=== PATIENT | male | born 1975 | race Caucasian/White ===

== ENCOUNTER 2018-11-10 12:21 | Observation (INO) ==
[2018-11-10] MEDS ORDERED: 0.9 % Sodium Chloride 1,000 ML IVC ONE (12:42)
[2018-11-10] MEDS ORDERED: *HR* HYDROmorphone (PF) 1 MG/ML SYRINGE IVP ONE (12:44)
[2018-11-10] MEDS ORDERED: Ondansetron 4 MG/2 ML VIAL IVP ONE ×2 (12:44→18:57)
--- NOTE | 2018-11-10 12:46 | Emergency Department Note ---
Disposition Clinical Impression: Abdominal pain, Vomiting, Gallbladder disease, Gallbladder sludge, Thrombocytopenia, Hepatomegaly Disposition: Admitted As Inpatient Referrals: NONE,PCP [Primary Care Provider] - Forms: ED Satisfaction Letter, Work/School Release Time of Disposition: 18:10 Abdominal Pain HPI - General Chief Complaint: ED Abdominal Pain Stated Complaint: vomiting,fever Time Seen by Provider: 11/10/18 12:42 Source: patient - History of Present Illness HPI Narrative: 43-year-old male reports the emergency department complaining of right upper abdominal pain and recurrent nonbloody vomitus. There is no history of anticoagulant therapy. No diarrhea or bloody stool. There is no history of trauma. He has no history of aneurysm, he is not anticoagulated. No syncope. The patient has had no shortness of breath coughing of blood or chest pain. There is no history of urinary symptomatology. No flank or back pain. The patient was recently evaluated in emergency department and reports he has gallbladder sludge. There is no history of diabetes. No major medical problems or prior abdominal surgery per his history. The patient's female ultrasound technol reports he may have had a fever. There is no history of jaundice or icterus. Pain Scale: 7 - Related Data Previous Rx's Medication Instructions Recorded OxyCODONE/APAP 5/325 [Percocet 1 each PO Q6HR PRN #12 tablet 07/17/16 5/325 MG] Tamsulosin [Flomax] 0.4 mg PO DAILY #12 cap.er.24h 07/17/16 Ondansetron ODT [Zofran ODT] 4 mg SL Q6HR PRN #10 tab.rapdis 01/17/17 Ondansetron ODT [Zofran ODT] 4 mg SL Q6HR #12 tab.rapdis 11/09/18 Allergies Allergy/AdvReac Type Severity Reaction Status Date / Time No Known Allergies Allergy Verified 01/17/17 18:55 All systems ED: reviewed and negative except as stated. Abdominal Pain PMH - Past Medical History Medical history: Reports: asthma, kidney stones Male Surgical History: Reports: no surgical history Psychiatric history: Reports: no psych history - Social History Smoking status: Current every day smoker Alcohol use: Reports: none Drug use: Reports: none Physical Exam - General Limitations: no limitations General appearance: alert, in no apparent distress - Head Head exam: atraumatic, normocephalic, normal inspection - Eye Eye exam: Present: normal appearance, PERRL, EOMI - ENT ENT exam: normal exam, normal oropharynx, mucous membranes moist, TM's normal bilaterally, normal external ear exam - Neck Neck exam: Present: normal inspection, full ROM, trachea midline - Chest Chest inspection: Present: symmetric chest wall rise. Absent: tenderness - Respiratory Respiratory exam: Present: normal lung sounds bilaterally. Absent: respiratory distress, prolonged expiratory phase - Cardiovascular Cardiovascular exam: Present: regular rate, normal rhythm, normal heart sounds - Abdominal Exam Abdominal exam: Present: soft, tenderness, normal bowel sounds. Absent: distention, guarding, rebound, rigidity Abdominal tenderness: Present: RUQ, mild - Extremities Exam Extremities exam: Present: normal inspection, full ROM, normal capillary refill. Absent: tenderness, pedal edema, joint swelling, calf tenderness - Expanded Lower Extremity Exam Neurovascular/Tendon exam: Present: normal capillary refill. Absent: motor deficit, sensory deficit, tendon deficit, extremity cold to touch, pallor - Back Exam Back exam: Present: normal inspection, full ROM. Absent: tenderness, CVA tenderness (R), CVA tenderness (L), vertebral tenderness - Neurological Exam Neurological exam: Present: alert, oriented X3, CN II-XII intact. Absent: motor sensory deficit - Psychiatric Psychiatric exam: Present: normal affect, normal mood - Skin Skin exam: Present: warm, dry, intact, normal color Course Vital Signs Temperature 98.8 F 11/10/18 12:37 Pulse Rate 87 11/10/18 12:37 Respiratory Rate 18 11/10/18 12:37 Blood Pressure 184/111 11/10/18 12:37 O2 Sat by Pulse Oximetry 98 11/10/18 12:37 Temperature 98.9 F 11/10/18 12:57 Pulse Rate 70 11/10/18 14:53 Respiratory Rate 12 11/10/18 14:53 Blood Pressure 133/95 11/10/18 14:53 O2 Sat by Pulse Oximetry 95 11/10/18 14:53 Oxygen Delivery Oxygen Delivery Room Air Abdominal Pain - MDM Narrative Medical decision making narrative: The patient was seen recently in the emergency department and had a CT scan which revealed some gallbladder sludge. He had persistent vomiting and right upper abdominal pain return to the emergency department for evaluation. Laboratory studies obtained as well as x-rays EKG and right upper quadrant sonogram. Ultrasound reveals gallstone with an element of wall thickening, equivocal for cholecystitis. Based on the patient's second visit to the emergency department with concerns regarding right upper abdominal pain, and abnormal CT scan and ultrasound with a history of recurrent vomiting, I consulted with the surgicalist on-call Dr. Gabby Solorzano. After review, cholecystectomy was considered and the patient preferred hospitalization versus outpatient management. The patient is currently stable. He has been made nothing by mouth and is pending admission to the surgical service. - Lab Data Lab results reviewed: Yes I reviewed the patient's lab results. Result diagrams: 11/10/18 12:52 11/10/18 12:52 Lab Results 11/10/18 11/10/18 11/10/18 Range/Units 12:52 12:52 12:52 WBC (4.3-11.1) K/mcL RBC (4.19-5.50) M/mcL Hgb (12.9-16.9) g/dL Hct (37.5-50.1) % MCV (83.0-100.0) fL MCH (28.0-33.3) pg MCHC (31.6-35.5) g/dL RDW (11.5-14.5) % Plt Count (140-400) K/mcL MPV (9.4-12.4) fL Immature Gran % (0-4) % Seg Neutrophils % % Lymphocytes % % Monocytes % % Eosinophils % % Basophils % % Neutrophils # (1.6-8.9) K/mcL Lymphocytes # (0.6-4.6) K/mcL Monocytes # (0.0-1.3) K/mcL Eosinophils # (0.0-0.6) K/mcL Basophils # (0.0-0.2) K/mcL Immature Plt Fraction (1.1-6.1) % PT 10.8 (9.4-12.1) Seconds INR 1.0 APTT 36.3 H (26.0-36.0) Seconds Sodium (136-145) mEq/L Potassium (3.5-5.1) mEq/L Chloride (98-107) mEq/L Carbon Dioxide (23-29) mEq/L BUN (6-20) mg/dL Creatinine (0.70-1.30) mg/dL Est GFR ( Amer) (> 60) Est GFR (Non-Af Amer) (> 60) BUN/Creatinine Ratio (6-26) Glucose (70-105) mg/dL Calculated Osmolality (280-300) Lactic Acid 1.2 (0.5-2.2) mmol/L Calcium (8.6-10.3) mg/dL Total Bilirubin (0.3-1.0) mg/dL Direct Bilirubin (0.0-0.2) mg/dL Indirect Bilirubin (0.0-1.2) mg/dL AST (13-39) Units/L ALT (7-52) Units/L Alkaline Phosphatase (34-104) Units/L Troponin I < 0.03 (< 0.04) ng/mL C-Reactive Protein (Less than 10) mg/L Serum Total Protein (6.4-8.9) g/dL Albumin (3.5-5.7) g/dL Globulin (2.4-3.5) g/dL Albumin/Globulin Ratio (1.1-2.2) Lipase (11-82) Units/L Urine Color (Yellow) Urine Clarity (Clear) Urine pH (5.0-8.0) pH Units Ur Specific Leon (1.010-1.025) Urine Protein (Neg-Trace) mg/dL Urine Glucose (UA) (Normal) mg/dL Urine Ketones (Negative) mg/dL Urine Blood (Negative) Urine Nitrite (Negative) Urine Bilirubin (Negative) Urine Urobilinogen (Normal) mg/dL Ur Leukocyte Esterase (Negative) Urine Microscopic RBC (0-3) per hpf Urine Microscopic WBC (0-3) per hpf Ur Squamous Epith Cells (None-Few) per lpf Urine Bacteria (None-Few) per hpf Hyaline Casts (None-Few) per lpf Ur Culture Indicated? (NO) 11/10/18 11/10/18 11/10/18 Range/Units 12:52 12:52 13:28 WBC 9.6 (4.3-11.1) K/mcL RBC 5.49 (4.19-5.50) M/mcL Hgb 16.4 D (12.9-16.9) g/dL Hct 48.5 (37.5-50.1) % MCV 88.3 (83.0-100.0) fL MCH 29.9 (28.0-33.3) pg MCHC 33.8 (31.6-35.5) g/dL RDW 12.1 (11.5-14.5) % Plt Count 85 L (140-400) K/mcL MPV 12.5 H (9.4-12.4) fL Immature Gran % 0.2 (0-4) % Seg Neutrophils % 70.9 % Lymphocytes % 22.9 % Monocytes % 5.0 % Eosinophils % 0.7 % Basophils % 0.3 % Neutrophils # 6.8 (1.6-8.9) K/mcL Lymphocytes # 2.2 (0.6-4.6) K/mcL Monocytes # 0.5 (0.0-1.3) K/mcL Eosinophils # 0.1 (0.0-0.6) K/mcL Basophils # 0.0 (0.0-0.2) K/mcL Immature Plt Fraction 13.3 H (1.1-6.1) % PT (9.4-12.1) Seconds INR APTT (26.0-36.0) Seconds Sodium 141 (136-145) mEq/L Potassium 3.6 (3.5-5.1) mEq/L Chloride 108 H (98-107) mEq/L Carbon Dioxide 23 (23-29) mEq/L BUN 13 (6-20) mg/dL Creatinine 1.02 (0.70-1.30) mg/dL Est GFR ( Amer) > 60 (> 60) Est GFR (Non-Af Amer) > 60 (> 60) BUN/Creatinine Ratio 13 (6-26) Glucose 171 H (70-105) mg/dL Calculated Osmolality 296 (280-300) Lactic Acid (0.5-2.2) mmol/L Calcium 9.2 (8.6-10.3) mg/dL Total Bilirubin 0.3 (0.3-1.0) mg/dL Direct Bilirubin 0.0 (0.0-0.2) mg/dL Indirect Bilirubin 0.3 (0.0-1.2) mg/dL AST 18 (13-39) Units/L ALT 33 (7-52) Units/L Alkaline Phosphatase 87 (34-104) Units/L Troponin I (< 0.04) ng/mL C-Reactive Protein 6 (Less than 10) mg/L Serum Total Protein 6.5 (6.4-8.9) g/dL Albumin 4.4 (3.5-5.7) g/dL Globulin 2.1 L (2.4-3.5) g/dL Albumin/Globulin Ratio 2.1 (1.1-2.2) Lipase 14 (11-82) Units/L Urine Color Yellow (Yellow) Urine Clarity Clear (Clear) Urine pH 6.5 (5.0-8.0) pH Units Ur Specific Leon 1.026 H (1.010-1.025) Urine Protein 30 H (Neg-Trace) mg/dL Urine Glucose (UA) Normal (Normal) mg/dL Urine Ketones Negative (Negative) mg/dL Urine Blood Negative (Negative) Urine Nitrite Negative (Negative) Urine Bilirubin Negative (Negative) Urine Urobilinogen Normal (Normal) mg/dL Ur Leukocyte Esterase Negative (Negative) Urine Microscopic RBC 0-3 (0-3) per hpf Urine Microscopic WBC 0-3 (0-3) per hpf Ur Squamous Epith Cells Many H (None-Few) per lpf Urine Bacteria None Seen (None-Few) per hpf Hyaline Casts None Seen (None-Few) per lpf Ur Culture Indicated? NO (NO) - Radiology Data Radiology results reviewed: Yes I reviewed the patient's radiology results.
[2018-11-10 13:04] LABS: Immature Granulocytes % 0.2 % (0-4); Mean Corpuscular Hemoglobin 29.9 pg (28.0-33.3)
[2018-11-10 13:06] LABS: Basophils % 0.3 %; Eosinophils # 0.1 K/mcL (0.0-0.6); Eosinophils % 0.7 %; Hematocrit 48.5 % (37.5-50.1); Hemoglobin 16.4 g/dL (12.9-16.9); Immature Platelets 13.3 % (1.1-6.1); Lymphocytes # 2.2 K/mcL (0.6-4.6); Lymphocytes % 22.9 %; Mean Corpuscular HGB Conc 33.8 g/dL (31.6-35.5); Mean Corpuscular Volume 88.3 fL (83.0-100.0); Mean Platelet Volume 12.5 fL (9.4-12.4); Monocytes # 0.5 K/mcL (0.0-1.3); Neutrophils # 6.8 K/mcL (1.6-8.9); Red Blood Count 5.49 M/mcL (4.19-5.50); Red Cell Distribution Width 12.1 % (11.5-14.5); Segmented Neutrophils % 70.9 %; White Blood Count 9.6 K/mcL (4.3-11.1)
[2018-11-10 13:17] LABS: Prothrombin Time 10.8 Seconds (9.4-12.1)
[2018-11-10 13:20] LABS: Activated Partial Thrombo Time 36.3 Seconds (26.0-36.0)
[2018-11-10 13:22] LABS: Platelet Count 85 K/mcL (140-400)
[2018-11-10 13:39] LABS: Bilirubin,Urine Negative (Negative); Blood,Urine Negative (Negative); Clarity,Urine Clear (Clear); Color,Urine Yellow (Yellow); Glucose,Urine (UA) Normal (Normal); Ketones,Urine Negative (Negative); Leukocyte Esterase,Urine Negative (Negative); Nitrite,Urine Negative (Negative); PH,Urine 6.5 pH Units (5.0-8.0); Protein,Urine 30 mg/dL (Neg-Trace); Specific Gravity,Urine 1.026 (1.010-1.025); Urobilinogen,Urine Normal (Normal)
[2018-11-10 13:40] LABS: Bacteria,Urine None Seen per hpf (None-Few); Hyaline Casts,Urine None Seen per lpf (None-Few); RBC,Urine 0-3 per hpf (0-3); Squamous Epithelial Cell,Urine Many per lpf (None-Few); WBC,Urine 0-3 per hpf (0-3)
[2018-11-10 14:40] LABS: Alanine Aminotransferase 33 Units/L (7-52); Albumin 4.4 g/dL (3.5-5.7); Albumin/Globulin Ratio 2.1 (1.1-2.2); Alkaline Phosphatase 87 Units/L (34-104); Aspartate Amino Transferase 18 Units/L (13-39); BUN/Creatinine Ratio 13 (6-26); Bilirubin,Indirect 0.3 mg/dL (0.0-1.2); Bilirubin,Total 0.3 mg/dL (0.3-1.0); Blood Urea Nitrogen 13 mg/dL (6-20); C-Reactive Protein 6 mg/L (Less than 10); Calcium 9.2 mg/dL (8.6-10.3); Carbon Dioxide 23 mEq/L (23-29); Chloride 108 mEq/L (98-107); Globulin 2.1 g/dL (2.4-3.5); Glucose 171 mg/dL (70-105); Lipase 14 Units/L (11-82); Osmolality,Calculated 296 (280-300); Potassium 3.6 mEq/L (3.5-5.1); Sodium 141 mEq/L (136-145); Total Protein 6.5 g/dL (6.4-8.9); eGFR For African Americans > 60 (> 60); eGFR For Non-African Americans > 60 (> 60)
[2018-11-10] MEDS ORDERED: CeFAZolin Syr 2,000MG/20 ML 2,000 MG/20 ML SYRINGE IVPB ONE (18:13)
--- NOTE | 2018-11-10 18:15 | Acute Care Surgery H&P ---
Date of Encounter: 11/10/18 Time of Encounter: 18:10 Assessment and Plan (1) Acute cholecystitis due to biliary calculus Current Visit: Yes Status: Acute The assessment and plan as outlined above was discussed with the patient and/or family members who expressed understanding and agreement. All questions were answered. Pt diagnosis of symptomatic cholelithiasis with cholecystitis is discussed. Laparoscopic Cholecystectomy is recommended. Procedure for the surgery, risks and benefits are discussed in detail. Possible known complications for Laparoscopic Cholecystectomy are bleeding, infection, bile duct injury, bile leak, small intestine or stomach injury, stroke, DVT/PE, ID or . Pt understands these risks, which in this case are low. Pt wishes to proceed with surgery as soon as possible. Informed consent is obtained. Pt condition is stable. Surgery is scheduled. History of Present Illness Chief complaint: RUQ abdominal pain HPI: This 43 y/o male pt presents to [facility] ED for the second day in a row c/o severe RUQ abdominal pain. Pt reports pain is severe and unrelenting. Pt c/o epigastric pain as well. Pt reports pain radiates into back. Pt reports intractable nausea and vomiting. Pt denies changes in BM. Pt denies CP or SOB. Pt denies fever. Past Med Surg Social Fam HX - Past Medical History Medical history: asthma, kidney stones Psychiatric history: no psych history - Past Surgical History Surgical History: no surgical history - Social History Smoking Status: Current every day smoker Smokeless Tobacco Status: No Alcohol use: none Drug use: none Medications and Allergies Allergy/AdvReac Type Severity Reaction Status Date / Time No Known Allergies Allergy Verified 01/17/17 18:55 Review of Systems All systems PM: The remainder of the systems were reviewed and are negative - Constitutional as per HPI, anorexia, no chills, no fatigue, no fever(s), no night sweats, no weakness, no weight loss - EENT Nose, mouth and throat: dry mouth, no dizziness, no nasal congestion, no nasal discharge, no sinus pain, no sinus pressure, no sore throat - Cardiovascular no chest pain, no diaphoresis, no dyspnea, no edema - Respiratory no cough, no dyspnea, no wheezing - Gastrointestinal abdominal pain, belching, bloating, nausea, vomiting, no constipation, no diarrhea, no heartburn - Genitourinary no dysuria, no flank pain, no urinary frequency - Musculoskeletal no back pain, no joint swelling, no limited range of motion, no neck pain - Integumentary no dry skin, no pruritus, no rash, no wounds, no jaundice - Neurological no confusion, no dizziness, no focal weakness, no weakness - Psychiatric no anxiety, no depression - Endocrine no fatigue - Hematologic/Lymphatic no easy bleeding, no easy bruising General Surgery Exam Initial Vital Signs Temp Pulse Resp BP Pulse Ox 98.8 F 87 18 184/111 98 11/10/18 12:37 11/10/18 12:37 11/10/18 12:37 11/10/18 12:37 11/10/18 12:37 - General physical appearance well nourished, no distress, moderate pain. negative: jaundice - Eyes PERRL, normal ocular movement. negative: icteric - ENT no congestion, dry mucosa. negative: nasal discharge - Neck no masses, trachea midline, no lymphadectomy, no venous distension - Respiratory normal respiratory effort, clear to auscultation - Cardiovascular Cardiovascular exam: Present: RRR. Absent: JVD - Abdomen Abdomen general surgery: Present: bowel sounds present, soft, distended, tender Abdominal Tenderness: Present: RUQ - Genitourinary Present: normal penis with no external lesions - Integumentary Integumentary general surgery: Present: warm and dry - Neurologic Present: CN 2-12 grossly intact, normal coordination - Musculoskeletal Present: normal gait, normal posture - Psychiatric Psychiatric general surgery: Present: A&Ox3, appropriate Results - Labs 11/10/18 12:52 11/10/18 12:52 Abnormal lab results Plt Count 85 K/mcL (140-400) L 11/10/18 12:52 MPV 12.5 fL (9.4-12.4) H 11/10/18 12:52 Immature Plt Fraction 13.3 % (1.1-6.1) H 11/10/18 12:52 APTT 36.3 Seconds (26.0-36.0) H 11/10/18 12:52 Chloride 108 mEq/L (98-107) H 11/10/18 12:52 Glucose 171 mg/dL (70-105) H 11/10/18 12:52 Globulin 2.1 g/dL (2.4-3.5) L 11/10/18 12:52 Ur Specific Currie 1.026 (1.010-1.025) H 11/10/18 13:28 Urine Protein 30 mg/dL (Neg-Trace) H 11/10/18 13:28 Ur Squamous Epith Cells Many per lpf (None-Few) H 11/10/18 13:28 Diabetes panel 11/10/18 Range/Units 12:52 Sodium 141 (136-145) mEq/L Potassium 3.6 (3.5-5.1) mEq/L Chloride 108 H (98-107) mEq/L Carbon Dioxide 23 (23-29) mEq/L BUN 13 (6-20) mg/dL Creatinine 1.02 (0.70-1.30) mg/dL Glucose 171 H (70-105) mg/dL Calcium 9.2 (8.6-10.3) mg/dL AST 18 (13-39) Units/L ALT 33 (7-52) Units/L Alkaline Phosphatase 87 (34-104) Units/L Albumin 4.4 (3.5-5.7) g/dL Calcium panel 11/10/18 Range/Units 12:52 Calcium 9.2 (8.6-10.3) mg/dL Albumin 4.4 (3.5-5.7) g/dL Pituitary panel 11/10/18 Range/Units 12:52 Sodium 141 (136-145) mEq/L Potassium 3.6 (3.5-5.1) mEq/L Chloride 108 H (98-107) mEq/L Carbon Dioxide 23 (23-29) mEq/L BUN 13 (6-20) mg/dL Creatinine 1.02 (0.70-1.30) mg/dL Glucose 171 H (70-105) mg/dL Calcium 9.2 (8.6-10.3) mg/dL Adrenal panel 11/10/18 Range/Units 12:52 Sodium 141 (136-145) mEq/L Potassium 3.6 (3.5-5.1) mEq/L Chloride 108 H (98-107) mEq/L Carbon Dioxide 23 (23-29) mEq/L BUN 13 (6-20) mg/dL Creatinine 1.02 (0.70-1.30) mg/dL Glucose 171 H (70-105) mg/dL Calcium 9.2 (8.6-10.3) mg/dL Total Bilirubin 0.3 (0.3-1.0) mg/dL AST 18 (13-39) Units/L ALT 33 (7-52) Units/L Alkaline Phosphatase 87 (34-104) Units/L Albumin 4.4 (3.5-5.7) g/dL All other labs normal. - Imaging US - abdomen: image reviewed (Cholelithiasis and mild gallbladder wall thickening) - VTE Reasons for not Prescribing Prophylaxis: Treatment not Indicated - Low risk for VTE
[2018-11-10] MEDS ORDERED: Lidocaine -MPF 4% 5 ML AMPUL ONE (18:32)
[2018-11-10] MEDS ORDERED: *HR* Midazolam HCl 2 MG/2 ML VIAL ONE (18:34)
[2018-11-10] MEDS ORDERED: Dexamethasone 4 MG/ML VIAL ONE (18:34)
[2018-11-10] MEDS ORDERED: *HR* Succinylcholine 200 MG/10 ML VIAL IVP ONE (18:34)
[2018-11-10] MEDS ORDERED: Lidocaine -MPF 2% 2 ML VIAL ONE (18:34)
[2018-11-10] MEDS ORDERED: Ondansetron 4 MG/2 ML VIAL ONE (18:34)
[2018-11-10] MEDS ORDERED: *HR* Propofol 200 MG/20 ML VIAL IVP ONE (18:34)
[2018-11-10] MEDS ORDERED: *HR* Rocuronium Bromide 50 MG/5 ML VIAL ONE (18:34)
[2018-11-10] MEDS ORDERED: Albuterol 2.5 MG/3 ML NEBULIZER IH ONE (18:36)
[2018-11-10] MEDS ORDERED: *HR* FentaNYL (PF) 100 MCG/2 ML VIAL ONE (18:38)
[2018-11-10] MEDS ORDERED: Albuterol 2.5 MG/3 ML NEBULIZER ONE (18:45)
--- NOTE | 2018-11-10 18:46 | Anesthesia Evaluation PreOp ---
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 Significant HX Other Medical History: Renal (stones) Anesthesia History: Past Anesthesia (none, no known family hx of anes complications) Alcohol Use: none Drug use: none Medications and Allergies Allergy/AdvReac Type Severity Reaction Status Date / Time No Known Allergies Allergy Verified 01/17/17 18:55 - Meds/Allergy Pre-op Review Medications Reviewed: Yes Allergies Reviewed: Yes Beta Blockers on Current Med List: No Anesthesia Results - Labs 11/10/18 12:52 11/10/18 12:52 Anesthesia Exam Vital Signs/O2 Sat, Most Current Temp Pulse Resp BP Pulse Ox 98.9 F 81 16 133/91 98 11/10/18 12:57 11/10/18 18:18 11/10/18 18:18 11/10/18 18:18 11/10/18 18:18 Weight: 106kg NPO (# of Hours): >8 - HEENT Pupil (Motor): Pupils equal, EOMI Mallampati: III Teeth: Edentulous Oral Opening: Greater than 3 - FEATHER CURLING MACHINE OPERATOR LOC: Oriented FEATHER CURLING MACHINE OPERATOR Motor: Normal RUE, Normal LUE, Normal RLE, Normal LLE, Normal Face FEATHER CURLING MACHINE OPERATOR Sensory: Normal: RUE, LUE, RLE, LLE, Face - Cardiac Rhythm: Regular - Pulmonary Breath Sounds: bilateral Clear Respiratory Effort: Symmetrical Anesthesia Assess/Plan ASA Score: 2 Level of consciousness: Cooperative Anesthetic Plan: General Monitoring Plan: Standard Monitors Recovery Plan: PACU
[2018-11-10] MEDS ORDERED: *HR* Promethazine 25 MG/ML VIAL IVP PRN (18:57)
[2018-11-10] MEDS ORDERED: *HR* Meperidine 25 MG/ML SYRINGE IVP PRN (18:57)
[2018-11-10] MEDS ORDERED: *HR* OxyCODONE Immed Rel 5 MG TABLET PO PRN ×2 (18:57→21:22)
[2018-11-10] MEDS ORDERED: *HR* HYDROmorphone (PF) 1 MG/ML SYRINGE IVP PRN (18:57)
[2018-11-10] MEDS ORDERED: Acetaminophen IV 1,000 MG/100 ML INFUS..BTL ONE (19:41)
[2018-11-10] MEDS ORDERED: Neostigmine Methylsulfate 3 MG/3 ML SYRINGE ONE (19:55)
--- NOTE | 2018-11-10 20:45 | Operative Note ---
Date of procedure: 11/10/18 Pre-op diagnosis: Acute cholecystitis with cholelithiasis Post-op diagnosis: same Procedure: Laparoscopic cholecystectomy Complications: None Anesthesia: GETA Surgeon: Thea Solorzano Was there an bankruptcy legal assistant present: Yes Administrative Job Titles: Elisha Rivers Estimated blood loss (cc): 25 Specimen: Gallbladder Condition: stable Disposition: PACU Procedure in Detail: This 43 year-old male was taken to the operating room and placed in the supine position. The anterior abdominal wall is prepped and draped in the usual sterile fashion. A 1-2 cm curvilinear incision is made in the infraumbilical area and subcutaneous tissue was dissected down to anterior rectus fascia. Fascia is grasped with a Reyes clamp, stay sutures were placed in the fascia is divided. Posterior rectus fascia and peritoneum were elevated and divided in the same manner. A Kendall port is inserted. Under direct visualization after the injection of 0.5% Marcaine the x3 5 mm ports are inserted in the right subcostal space under direct visualization. Exploration of the intraabdominal cavity reveals an abnormal gallbladder. The patient is placed in reverse Trendelenburg position and rotated to the left. The gallbladder is grasped and retracted in cephalad direction. It is also grasped and retracted in the lateral direction. The cystic duct was carefully identified circumferentially dissected doubly clipped and divided between clips. The cystic artery is carefully identified and circumferentially dissected and divided between clips. The gallbladder is dissected off the liver bed using electrocautery. Hemostasis was perfected using electrocautery. The gallbladder is removed from the intra-abdominal cavity using an Endo Catch bag. Copious irrigation is carried out in the intra- abdominal cavity, Wang's pouch and the gallbladder fossa. The pneumoperitoneum was allowed to escape under direct visualization. The ports were removed also under direct visualization. The fascia at the infraumbilical incision is closed using 0 Vicryl sutures. All skin incisions are closed using 4-0 Monocryl subcuticular stitches. Steri-Strips are placed. Sterile dressing is placed. Patient tolerated procedure well was taken to the PACU in good condition.
--- NOTE | 2018-11-10 21:18 | Anesthesia Evaluation Post Op ---
Date of Encounter: 11/10/18 Time of Encounter: 21:17 - Vital Signs Vital Signs: Vital Signs/O2 Sat, Most Current Temp Pulse Resp BP Pulse Ox 97.5 F L 71 12 156/87 95 11/10/18 20:57 11/10/18 20:57 11/10/18 20:57 11/10/18 20:57 11/10/18 20:57 - Lungs Lungs: Clear Ascult./Percussion - Airway Airway: Non-obstructed - Cardiovascular Regular Rate - Mental Status Mental Status: Alert & Oriented, Answers Appropriately - Pain Pain Scale: 0 Pain Scale used: Numeric (1 - 10) - Nausea Vomiting Nausea Vomiting: Not Present - Hydration Hydration: Ice chips - Discharge PostOp Status: Transfer Patient to floor
[2018-11-10] MEDS ORDERED: Ondansetron 4 MG/2 ML VIAL IVP PRN (21:22)
[2018-11-10] MEDS ORDERED: Nicotine 14 MG PATCH.TD24 TD SCH (23:00)
[2018-11-11] MEDS: ceFAZolin 1,000 MG in Water for inj. (sterile) 10 ML IVP SCH ×2 (00:23→07:47)
[2018-11-11 11:04] VITALS: BP 157/83
[2018-11-11] MEDS ORDERED: Ibuprofen 800 MG TABLET PO ONE (12:28)
[2018-11-11] MEDS ORDERED: *HR* OxyCODONE/APAP 5/325 TABLET PO PRN (12:28)
--- NOTE | 2018-11-11 12:32 | Discharge Summary ---
Orders not resulted at time of discharge: Pending orders 11/10/18 12:43 ECG 12 lead ECG [ECG] Stat 11/10/18 12:52 Culture,Blood [BC] Stat 11/10/18 20:17 Surgical Pathology [PTH] Routine Date of Encounter: 11/11/18 Time of Encounter: 12:33 - Discharge Diagnosis (1) Acute cholecystitis due to biliary calculus Priority: Primary Status: Resolved General Surgery Exam Initial Vital Signs Temp Pulse Resp BP Pulse Ox 98.8 F 87 18 184/111 98 11/10/18 12:37 11/10/18 12:37 11/10/18 12:37 11/10/18 12:37 11/10/18 12:37 Vital Signs Temp Pulse Resp BP Pulse Ox 11/11/18 11:01 98.3 F 89 18 157/83 93 11/11/18 08:03 98.2 F 92 18 161/97 92 11/11/18 04:08 97.8 F 90 16 154/98 94 11/11/18 00:24 98.1 F 88 12 137/86 94 11/10/18 23:15 98.4 F 91 12 167/97 95 11/10/18 22:15 98.5 F 91 12 150/90 95 11/10/18 21:45 98.0 F 71 12 157/94 95 11/10/18 21:15 97.8 F 76 12 173/60 11/10/18 20:57 97.5 F L 71 12 156/87 95 11/10/18 20:47 68 12 153/97 97 11/10/18 20:37 69 12 161/98 98 11/10/18 20:27 97.4 F L 77 20 140/100 99 11/10/18 18:18 81 16 133/91 98 11/10/18 14:53 70 12 133/95 95 11/10/18 12:57 98.9 F 89 16 190/111 98 11/10/18 12:37 98.8 F 87 18 184/111 98 Intake and Output 11/10/18 11/11/18 11/11/18 23:59 07:59 15:59 Intake Total Output Total 825 / 825 Balance -25 / 975 10 / -815 -825 / -815 Intake: IV Fluids 10 / 10 Ancef 1,000 MG In Water for inj . (sterile) 10 ML @ 200 mls/hr IVP Q8HR [facility] Rx#:[id number] Output: Urine 825 / 825 Estimated Blood Loss Other: Weight 97 kg Patient Weight 11/11/18 23:59 Weight 97 kg VITAL SIGNS: Reviewed. See [facility] GENERAL: In no apparent distress. HEENT: Normocephalic, atraumatic, pupils are equal and reactive, extraocular motions intact, oropharynx is pink and moist, there is no neck adenopathy or JVD noted. CHEST/RESPIRATORY: The thorax is free from signs of trauma. Lung sounds: clear to auscultation, normal respiratory effort CARDIAC: Regular rate and rhythm. Normal S1 and S2, without murmurs, gallops, or rubs. VASCULAR: No Edema. 2+ peripheral pulses. ABDOMEN: soft, expected postoperative tenderness, active bowel sounds INCISION: Surgical incision is clean, dry, and intact. There are no signs of cellulitis or infection noted. MUSCULOSKELETAL: Good range of motion of all major joints. Extremities without clubbing, cyanosis or edema. NEUROLOGIC EXAM: Alert and oriented x 3. Speech normal. Follows commands. PSYCHIATRIC: Mood normal. SKIN: No rash or lesions. - Hospital Course Hospital course: Mr. Peterson is a 43 year old male who presented on 11/10/2018 with right upper quadrant pain. He was found to have acute cholecystitis with cholelithiasis. He was taken to the operating room where he underwent an uncomplicated laparoscopic cholecystectomy. He is ambulating avoiding without difficulty, tolerating a diet without nausea or vomiting, vital signs are able, and he is afebrile. We will begin discharge planning to home with a follow-up in approximately 2 weeks. - Time Spent with Patient Total time spent providing and/or coordinating discharge services: - Discharge Medications Prescriptions: New Docusate Sodium [Colace] 100 mg PO BID PRN #30 capsule PRN Reason: Contstipation Ibuprofen 800 mg PO Q8H PRN #30 tablet PRN Reason: Postsurgical pain Polyethylene Glycol 3350 [MiraLAX Powder Bulk 17.9 Oz] 1 scoop PO DAILY 30 Days #510 gm OxyCODONE/APAP 5/325 [Percocet 5/325 MG] 1 each PO Q6HR PRN 7 Days #28 tablet PRN Reason: Pain Home Medications: Docusate Sodium [Colace] 100 mg PO BID PRN #30 capsule 11/11/18 [Rx] Ibuprofen 800 mg PO Q8H PRN #30 tablet 11/11/18 [Rx] OxyCODONE/APAP 5/325 [Percocet 5/325 MG] 1 each PO Q6HR PRN 7 Days #28 tablet 11/11/18 [Rx] Polyethylene Glycol 3350 [MiraLAX Powder Bulk 17.9 Oz] 1 scoop PO DAILY 30 Days #510 gm 11/11/18 [Rx] Allergies/Adverse Reactions: Allergy/AdvReac Type Severity Reaction Status Date / Time No Known Allergies Allergy Verified 01/17/17 18:55 Date of admission: 11/10/18 18:34 Primary care physician: PCP NONE Discharging clinician: Aimee Blankenship Anticipated date of discharge: 11/11/18 Labs on day of discharge: Labs from last 24 hours 11/10/18 11/10/18 11/10/18 13:28 12:52 12:52 WBC 9.6 RBC 5.49 Hgb 16.4 D Hct 48.5 MCV 88.3 MCH 29.9 MCHC 33.8 RDW 12.1 Plt Count 85 L MPV 12.5 H Immature Gran % 0.2 Seg Neutrophils % 70.9 Lymphocytes % 22.9 Monocytes % 5.0 Eosinophils % 0.7 Basophils % 0.3 Neutrophils # 6.8 Lymphocytes # 2.2 Monocytes # 0.5 Eosinophils # 0.1 Basophils # 0.0 Immature Plt Fraction 13.3 H PT INR APTT Sodium 141 Potassium 3.6 Chloride 108 H Carbon Dioxide 23 BUN 13 Creatinine 1.02 Est GFR ( Amer) > 60 Est GFR (Non-Af Amer) > 60 BUN/Creatinine Ratio 13 Glucose 171 H Calculated Osmolality 296 Lactic Acid Calcium 9.2 Total Bilirubin 0.3 Direct Bilirubin 0.0 Indirect Bilirubin 0.3 AST 18 ALT 33 Alkaline Phosphatase 87 Troponin I C-Reactive Protein 6 Serum Total Protein 6.5 Albumin 4.4 Globulin 2.1 L Albumin/Globulin Ratio 2.1 Lipase 14 Urine Color Yellow Urine Clarity Clear Urine pH 6.5 Ur Specific Alpine 1.026 H Urine Protein 30 H Urine Glucose (UA) Normal Urine Ketones Negative Urine Blood Negative Urine Nitrite Negative Urine Bilirubin Negative Urine Urobilinogen Normal Ur Leukocyte Esterase Negative Urine Microscopic RBC 0-3 Urine Microscopic WBC 0-3 Ur Squamous Epith Cells Many H Urine Bacteria None Seen Hyaline Casts None Seen Ur Culture Indicated? NO 11/10/18 11/10/18 11/10/18 12:52 12:52 12:52 WBC RBC Hgb Hct MCV MCH MCHC RDW Plt Count MPV Immature Gran % Seg Neutrophils % Lymphocytes % Monocytes % Eosinophils % Basophils % Neutrophils # Lymphocytes # Monocytes # Eosinophils # Basophils # Immature Plt Fraction PT 10.8 INR 1.0 APTT 36.3 H Sodium Potassium Chloride Carbon Dioxide BUN Creatinine Est GFR ( Amer) Est GFR (Non-Af Amer) BUN/Creatinine Ratio Glucose Calculated Osmolality Lactic Acid 1.2 Calcium Total Bilirubin Direct Bilirubin Indirect Bilirubin AST ALT Alkaline Phosphatase Troponin I < 0.03 C-Reactive Protein Serum Total Protein Albumin Globulin Albumin/Globulin Ratio Lipase Urine Color Urine Clarity Urine pH Ur Specific [place]pine Urine Protein Urine Glucose (UA) Urine Ketones Urine Blood Urine Nitrite Urine Bilirubin Urine Urobilinogen Ur Leukocyte Esterase Urine Microscopic RBC Urine Microscopic WBC Ur Squamous Epith Cells Urine Bacteria Hyaline Casts Ur Culture Indicated? Preliminary micro results at discharge 11/10/18 12:52 Blood Culture - Preliminary Peripheral Venipuncture Culture is incubating and being continuously monitored for growth. Final report to follow. 11/10/18 14:00 Blood Culture - Preliminary Peripheral Venipuncture Culture is incubating and being continuously monitored for growth. Final report to follow. - Impressions ITS Impressions Chest/Abdomen X-ray 11/10/18 12:43 IMPRESSION: 1. No acute cardiopulmonary disease. 2. Nonobstructive bowel gas pattern, without evidence of free air. There is a moderate fecal load. D/ / 11/10/2018 13:16:30 Jonathan Richter MD / magdalena Interpreting Provider: Jonathan Richter MD Abdomen Ultrasound 11/10/18 12:57 IMPRESSION: 1. Cholelithiasis and mild gallbladder wall thickening but negative sonographic Garcia's sign. Findings are equivocal for cholecystitis. Consider further assessment with HIDA scan. 2. Borderline hepatomegaly with fatty infiltration. D/ / Sonia Rojo MD / Sonia Rojo MD Interpreting Provider: Sonia Rojo MD - Patient Status Disposition: Home, Self-Care Condition: Good Functional capacity at discharge: independent ambulation Overall status at discharge: patient is progressing back to baseline - Discharge Instructions Instructions: Laparoscopic Cholecystectomy (DC) Follow Up With: Jasvir Cardoza MD [Partnered Physician] - 12/02/18 8:20 am NONE,PCP [Primary Care Provider] - Additional Instructions: General Surgical Discharge Instructions 1. No pushing, pulling, or lifting greater than 15 lbs for 2weeks. 2. You may remove your dressings and shower beginning today, but no tub baths, soaking, or swimming for 2 weeks. 3. No driving for two days unless otherwise specified and then you may resume driving when you are off narcotics for 24 hours and are safe to react in a car. 4. Take ibuprofen every 8 hours for discomfort. If this does not relieve discomfort, you may take the as needed Percocet. Eat a small snack with pain medication as this will help reduce the risk of nausea. Take narcotics as directed. Do not take more narcotics then directed and do not share your narcotics with any other person. Do not drink alcohol while on narcotics. You can take the Zofran/ondansetron if needed for nausea or with a dose of narcotics to prevent nausea. 5. Take stool softeners (Colace) or a water based laxative (Miralax) while taking narcotics. You may hold for loose stools. 6. Report any fevers greater than 100.5F, increase abdominal discomfort, drainage that looks like pus, increased redness or pain at the surgical site, or any vomiting. 7. Report any pain in the calves, shortness of breath, or rapid heartbeat. 8. Follow-up in the office as directed. 9. If you were prescribed antibiotics, do not stop them without talking to your provider. - Diet and Activity Activity: increase activity as tolerated Diet: advance to your usual diet
--- NOTE | 2018-11-11 14:09 | Electrocardiograph Report ---
[facility] Test Date: 2018-11-10 Pat Name: Wan Peterson Department: [id number] Room: 3B33 Gender: M [employer] In[employer]: : [id number] Requested By: Markell Taylor Order Number: [id number] Reading MD: Venkatesh Merritt Measurements Intervals [place] Rate: 84 P: -12 HI: 127 QRS: 14 QRSD: 93 T: 32 QT: 379 QTc: 448 Interpretive Statements Sinus rhythm Abnormal R-wave progression, late transition Electronically Signed On 11-11-2018 14:07:26 EDT by Venkatesh Merritt
== END 2018-11-11 13:09 | disposition home or self-care (01) ==
LOC: EMEROOARM 12:21 → 3BNU 12:21
PROVIDERS: ADMIT Student in an Organized Health Care Education/Training Program; ATTEND Student in an Organized Health Care Education/Training Program